=== PATIENT | male | born 1980 | race Caucasian/White ===

== ENCOUNTER 2018-11-28 07:40 | Emergency (ER) | payer OTHER, SELFPAY ==
[2018-11-28 07:41] VITALS: BP 128/85; PULSE 77; RESP 16; TEMP 36.5; O2SAT 99; BMI 19.7
[2018-11-28] MEDS: 0.9% Normal Saline 1,000 ML 1000 ML IV (08:20)
[2018-11-28] MEDS: Ondansetron 4 MG/2 ML Vial IV (08:21)
[2018-11-28 08:26] LABS: Absolute Neutrophil Count 3.8 X10^3/uL (2.0-7.7); Basophil# 0.03 X10^3/uL; Basophil% 0.6 % (0-1); Eosinophil# 0.03 X10^3/uL; Eosinophils% 0.6 % (0-5); Hematocrit 44.5 % (40-54); Hemoglobin 15.1 g/dl (13.0-16.5); Lymphocyte % 14.2 % (19-41); Mean Corp Hgb Conc 33.9 g/gl (32-36); Mean Corpuscular Hgb 30.1 pg (27.0-32.0); Mean Corpuscular Volume 88.8 fL (80-94); Monocyte# 0.43 X10^3/uL; Monocyte% 8.7 % (0-10); Neutrophil # 3.75 X10^3/uL (2.7-7.7); Neutrophil % 75.9 % (47-70); POSITIVE COUNT NO; POSITIVE DIFFERENTIAL NO; POSITIVE MORPHOLOGY NO; Platelet Count 210 K/mm3 (150-450); RBC Distribution Width CV 12.6 % (11.6-14.6); Red Blood Count 5.01 M/mm3 (4.6-6.2); White Blood Count 4.9 K/mm3 (4.4-11.0)
--- NOTE | 2018-11-28 08:28 | ED.DCSUM_ITS ---
- ER Visit Summary Date of Service: 11/28/18 Chief Complaint: [Vomiting and diarrhea] History of Present Illness: The patient is a 38 M presents to the emergency department with complaint of vomiting that started initially a week ago. Patient states that a week ago he was vomiting while at work and sent home. He subsequently went several days without any further vomiting always had loose stools. Yesterday patient vomited one time in the morning. He has been having up to 3-4 loose stools per day. Patient was at work vomited again today and noted some red chunks and became concerned. Patient has no medical history. He denies recent travel. Denies any sick contacts. [] Physical Examination: [HEENT-PERRLA, EOMI. Cranial nerves II through XII grossly intact. TMs clear. Mucous membranes moist. No adenopathy. Cardiovascular-regular rate and rhythm without murmur or ectopy Lungs-clear to auscultation, chest wall stable without crepitus or subcu emphysema Abdomen-hyperactive bowel sounds. Patient has some mild diffuse discomfort on palpation. There is no rebound, rigidity, or perineal signs. Extremities-intact ?4, normal range of motion, normal pulses, atraumatic] Test Results: [CBC with differential was normal, chemistries were normal, LFTs were normal, lipase normal. Urinalysis was normal.] Emergency Department Course and Treatment: [Patient was given normal saline initially. Patient was given Zofran 4 mill grams IV. Treatment Plan: [Patient given a prescription for Zofran and Prevacid. Patient will be given referral to primary care physician therapeutic recreation specialist for no doc. Patient advised to return if persistent vomiting, dehydration, persistent bloody emesis with clots, or condition should worsen anyway. I suspect patient likely had a small Katelyn-Hill tear.] Disposition: [Discharged home in stable condition] Impression: [Viral gastroenteritis Katelyn-Hill tear] This note was generated with [employer] dictation software. It may contain incorrect words, spelling, and punctuation that were not noted in review of the chart prior to signing ED Disposition - Plan for ED Patient: Referrals: Care Physician,No Primary [Primary Care Provider] -
[2018-11-28 08:36] LABS: Bacteria 0 SEEN /hpf (None Seen); Mucous, Urine 0 SEEN /hpf (<or=2+); Red Blood Cells-Urine 0 SEEN /hpf (0-5); White Blood Cells 0 SEEN /hpf (0-5)
[2018-11-28 08:38] LABS: Color, Urine Straw (Yellow); Glucose, Dipstick Normal (Normal); Ketone-Dipstick Negative (Negative); Leukocyte Esterase-Dipstick Negative /ul (Negative); Nitrite-Dipstick Negative (Negative); Occult Blood-Urine Negative /ul (Negative); Protein-Dipstick Negative (Negative); Urine Bilirubin Dipstick Negative (Negative); Urine Clarity Sl. Cloudy (Clear); Urine Urobilinogen Normal (Normal); Urine pH 6.5 (5.0 - 8.0)
[2018-11-28 08:40] LABS: Albumin, Serum 4.4 g/dL (3.2-5.0); BUN 11 mg/dL (7-18); BUN/Creat Ratio 11.6 RATIO (10-20); Creatinine, Serum 0.95 mg/dL (0.70-1.30); EST Glomerular Filtration Rate 94 mL/min (>60); Est Glom Filt Rate - Afr Amer 114 mL/min (>60); Estimated Creatinine Clearance 101.11 ml/min; Glucose 89 mg/dL (74-106); Protein, Total 7.7 g/dL (6.4-8.2)
[2018-11-28 08:41] LABS: ALB/GLOB Ratio 1.3 RATIO (0.9-2.4); AST(SGOT) 17 U/L (15-37); Alanine Aminotransfer ALT/SGPT 23 U/L (16-61); Alkaline Phosphatase 73 U/L (45-117); Anion Gap 3 (5-15); Calcium,Total 8.7 mg/dL (8.5-10.1); Chloride 104 mmol/L (98-107); Globulin 3.3 g/dL (2.2-4.2); Lipase 89 U/L (73-393); Potassium 3.7 mmol/L (3.5-5.1); Sodium Level 138 mmol/L (136-145)
[2018-11-28 08:45] LABS: Squamous Epithelial Cells - UA 0-5 SEEN /hpf (0-5)
--- NOTE | 2018-11-28 08:51 | ED.DEP ---
ED Disposition - Plan for ED Patient: Instructions: ED Gastroenteritis Viral, Katelyn-Hill Tear Prescriptions: Ondansetron [Zofran Odt] 4 mg PO Q8H PRN PRN #10 tab PRN Reason: Nausea Lansoprazole [Prevacid] 30 mg PO DAILY #30 cap Referrals: Care Physician,No Primary [Primary Care Provider] - Dwight Mark MD [STAFF PHYSICIAN] - 3-5 Days
[2018-11-28 09:07] VITALS: BP 130/80; PULSE 78; RESP 18; O2SAT 99
== END 2018-11-28 09:08 | disposition home or self-care (01) ==
PROVIDERS: Emergency Provider Emergency Medicine
DX: A08.4 Viral intestinal infection, unspecified (principal); K22.6 Gastro-esophageal laceration-hemorrhage syndrome; F17.290 Nicotine dependence, other tobacco product, uncomplicated
CPT/HCPCS: 80053; 81001; 83690; 85025; 96361; 96374; 99283; J7030; A4216; J2405

== ENCOUNTER 2020-01-27 12:54 | Emergency (ER) | payer SELFPAY ==
[2020-01-27 12:55] VITALS: BP 132/84; PULSE 92; RESP 18; TEMP 36.6; O2SAT 100; BMI 19.8
--- NOTE | 2020-01-27 13:20 | ED.VIS.HA ---
History of Present Illness Chief Complaint: Headache Informant: Patient Onset: Today - around 8 hrs ago Context: Sudden - awoke from sleep 3am w/ headache Timing: Continuous Quality: Similar Prior Headaches Location: bifrontal retroorbital Current Severity: Moderate Maximum Severity: Moderate Worsened by: light, sound Relieved by: nothing; tried excedrin Associated Symptoms: Nausea, Blurred Vision, Photophobia. Negative for: Fever, Vomiting, Sore Throat, Sinus Pressure, Numbness, Tingling, Visual Loss Injury: - - No injury or fall or fever Narrative: Patient with history of migraines and states this feels similar to prior ones except that is not improving or going away. Seasonal allergies are known trigger, which he has had lately. He states when he wakes up with a headache like this which he has done in the past, he usually takes some Excedrin and goes back to sleep and wakes up feeling better, but that was not the case when he did it today. He usually takes [id number] medications and has never had prescription migraine medications before that he can recall. No recent illnesses or injury. No focal neurologic symptoms. Diffuse blurry vision when his headache is bad. - Past Medical History (1) Migraines Status: Chronic Past Medical History - Allergies and Home Meds Allergies/Adverse Reactions: Allergies No Known Allergies Allergy (Verified 01/27/20 12:58) Primary Care Physician: Care Physician,No Primary [Primary Care Provider] - Smoking Status: Current every day smoker Drugs: - - ex-narcotic abuser Review of Systems General: Denies: Chills, Fever, Sweats Eyes: Reports: Blurred Vision - bilaterally. Denies: Diplopia ENT: Denies: Rhinorrhea, Sore throat Cardiovascular: Denies: Chest pain, Palpitations Respiratory: Denies: Dyspnea, Cough, Dyspnea on exertion Gastrointestinal: Reports: Nausea. Denies: Abdominal pain, Vomiting, Diarrhea, Melena, Hematochezia Genitourinary: Denies: Dysuria, Hematuria, Frequency Musculoskeletal: Denies: Back pain, Extremity Pain Skin: Denies: Rash, Wounds Neurological: Reports: Headache. Denies: Weakness, Numbness Physical Exam Vital Signs/Narrative: Vital Signs Temp Pulse Resp BP Pulse Ox 01/27/20 12:55 98 F 92 18 132/84 H 100 Inital Vital Signs reviewed: Yes General: Well nourished, Well developed, - - NAD Head: NC, AT Eyes: Perrl, EOMI, - - photophobia ENT: Moist mucous membranes, No rhinorrhea Neck: Supple, No Meningismus Respiratory: No distress Extremities: Nontender, No edema Skin: Normal color, No rash, No Trauma Neuro: Alert, Oriented x3, Cranial nerves II-XII grossly intact, Normal Strength, Normal Sensation, Normal Gait Psychological: Normal affect, Normal Mood Diagnostic/Tx/Re-eval - Medical Decision Making Pt initially treated w/ SQ Imitrex. Will be reevaluated for improvement. Plan is for discharge. Will advance treatment here before that if needed. ED Disposition - Plan for ED Patient: Disposition: Home or Assisted Living Diagnosis: Migraine headache Instructions: ED, Migraine (Classical) Referrals: Doctor,Your [STAFF PHYSICIAN] -
[2020-01-27] MEDS: SUMAtriptan 6 MG/0.5 ML Vial SC (14:13)
== END 2020-01-27 14:56 | disposition home or self-care (01) ==
LOC: ED 14:54
PROVIDERS: Emergency Provider Emergency Medicine
DX: G43.909 Migraine, unspecified, not intractable, without status migrainosus (principal); F17.200 Nicotine dependence, unspecified, uncomplicated
CPT/HCPCS: 96372; 99282; J3030

== ENCOUNTER 2020-05-18 10:06 | Emergency (ER) | payer SELFPAY ==
[2020-05-18 10:07] VITALS: BP 136/87; PULSE 80; RESP 16; TEMP 36.4; O2SAT 100; BMI 21.1
--- NOTE | 2020-05-18 10:24 | ED.DCSUM_ITS ---
History of Present Illness Chief Complaint: Headache Informant: Patient Onset: Today Context: Gradual Current Severity: Moderate Associated Symptoms: Nausea, Photophobia. Negative for: Fever, Numbness, Visual Changes, Blurred Vision Narrative: Patient is a 39-year-old male with history of migraines presenting with a headache. Patient states yesterday he was helping his girlfriend move into a new house and they released him sleep arms on the new house. He was not wearing a respirator when he did this. He states when he woke up this morning he had a nagging headache that is progressed throughout the day. He states it is throbbing in nature and feels like a pressure behind his eyes. He has associated photophobia. He states he went to work where it is very loud and that was just aggravating his symptoms. He had to leave work because of his symptoms. He states he gets about 3 headaches a month but has not had a bad would like this in a couple months. At that time he was seen in our ER and was given a shot of Imitrex which helped his symptoms. Patient is not follow with a primary care doctor. He is not on any regular maintenance therapy for his headaches. He did try taking generic Migraine medication with no relief of his symptoms. He has no other complaints at this time. Past Medical History - Allergies and Home Meds Allergies/Adverse Reactions: Allergies No Known Allergies Allergy (Verified 05/18/20 10:08) Primary Care Physician: Care Physician,No Primary [Primary Care Provider] - Past Medical History: - - Headaches Surgical History: noncontributory Smoking Status: Never smoker Alcohol: None Drugs: None Review of Systems General: Reports: Malaise. Denies: Chills, Fever, Sweats Eyes: Reports: - - Photophobia. Denies: Visual changes - bilaterally, Diplopia ENT: Denies: Rhinorrhea, Sore throat Cardiovascular: Denies: Chest pain, Palpitations Respiratory: Denies: Dyspnea, Cough, Dyspnea on exertion Gastrointestinal: Reports: Nausea. Denies: Abdominal pain, Vomiting, Diarrhea, Melena, Hematochezia Genitourinary: Denies: Dysuria, Hematuria, Frequency Musculoskeletal: Reports: Neck pain - Left-sided. Denies: Back pain, Extremity Pain Skin: Denies: Rash, Wounds Neurological: Reports: Headache. Denies: Weakness, Numbness Physical Exam Vital Signs/Narrative: Vital Signs Temp Pulse Resp BP Pulse Ox 05/18/20 10:07 97.5 F L 80 16 136/87 H 100 Inital Vital Signs reviewed: Yes General: Well nourished, Well developed Head: NC, AT Eyes: Perrl, EOMI ENT: Moist mucous membranes, No rhinorrhea, TM's clear Neck: Supple, No Lymphadenopathy, No JVD, Nontender, No Meningismus, Paraspinal Tenderness - Left lower paraspinal Cardiovascular: Regular rate, Regular rhythm, No murmurs Respiratory: No distress, CTA bilaterally, Chest nontender Abdomen: Soft, Nontender, Nondistended, Normal bowel sounds Back: Nontender, Normal Inspection, - - Mild left trapezius tenderness palpation. Negative for: CVA tenderness, Spinal tenderness Extremities: Nontender, No edema, - Skin: Normal color, No rash Neuro: Alert, Oriented x3, Cranial nerves II-XII grossly intact, Normal Stren gth, Normal Sensation, Normal DTR, Normal Gait Psychological: Normal affect Diagnostic/Tx/Re-eval - Medical Decision Making Patient evaluated for gradual onset headache. He appears nontoxic in no acute distress. He has normal vital signs. He has no meningeal signs. He has a normal neurologic exam. Patient states previously sumatriptan has helped his headaches. He is given that as well as oral Zofran. On reevaluation he states he is feeling better. He is ready to go home. He is requesting a work note which is given to him for today. He is given return precautions. He verbalizes agreement understand this plan. Discharged home in stable and improved condition. ED Disposition - Plan for ED Patient: Disposition: Home or Assisted Living Diagnosis: Migraines Instructions: ED Headache Unspecified Referrals: Lisandro Griffin MD [STAFF PHYSICIAN] -
[2020-05-18] MEDS: Ondansetron ODT 4 MG Tablet PO (10:34)
[2020-05-18] MEDS: SUMAtriptan 6 MG/0.5 ML Vial SC (10:35)
== END 2020-05-18 11:18 | disposition home or self-care (01) ==
PROVIDERS: Emergency Provider Emergency Medicine
DX: G43.909 Migraine, unspecified, not intractable, without status migrainosus (principal); M54.2 Cervicalgia
CPT/HCPCS: 96372; 99282; J3030

== ENCOUNTER 2020-06-18 07:47 | Emergency (ER) | payer SELFPAY ==
[2020-06-18 07:48] VITALS: BP 141/92; PULSE 94; RESP 16; TEMP 36.4; O2SAT 100; BMI 21.1
--- NOTE | 2020-06-18 07:54 | RAD_ITS ---
STUDY: X-RAY CHEST REASON FOR EXAM: Male, 39 years old. SINUS CONGESTION/PRESSURE -- COUGH TECHNIQUE: Single AP portable view of the chest. COMPARISON: None. FINDINGS: Hyperinflation. The lungs are clear. There is no demonstrated pleural abnormality. Normal size heart. Normal mediastinum and brianne. Normal visualized pulmonary arteries. Normal visualized aortic arch and descending thoracic aorta. Normal visualized thoracic spine. Normal visualized ribs, clavicles, and shoulders. There is no demonstrated abnormality of the visualized soft tissue structures of the upper abdomen. RAD/Chest 1 View (Portable) IMPRESSION: Hyperinflation. Electronically Signed: René Dsouza, at 8:41 EDT , Service support ,
--- NOTE | 2020-06-18 07:55 | ED.VIS.GEN ---
History of Present Illness Chief Complaint: Cold Sx Informant: Patient Onset: Weeks - Onset 1 week ago Context: Sudden Onset Timing: Continuous Quality: Viral upper respiratory Location: Upper respiratory Current Severity: Mild Maximum Severity: Moderate Worsened by: Nothing Relieved by: Nothing Associated Symptoms: Crusting and drainage from eyes Narrative: Patient is a 39-year-old male who presents with upper respiratory symptoms that started 1 week ago. He is a non-smoker. He denies fever, chills night sweats. He does report nasal congestion postnasal drainage stuffed up ears and more frequent headaches. He does admit question of his eyelashes and drainage from his eyes. He denies any exposure to Covid. He has no other symptoms. He presents because he had to call off work because he feels ill. Prior similar symptoms: No Recent Illness/Hospitalization: No - Past Medical History (1) Migraines Status: Chronic Past Medical History - Allergies and Home Meds Allergies/Adverse Reactions: Allergies No Known Allergies Allergy (Verified 06/18/20 07:48) Primary Care Physician: Care Physician,No Primary [Primary Care Provider] - Surgical History: noncontributory Lives: Spouse/ Significant Other Smoking Status: Never smoker Drugs: None Review of Systems General: Denies: Chills, Fever, Sweats Eyes: Reports: - - Crusting of eyelashes and drainage noted in the morning. Denies: Visual changes - bilaterally, Blurred Vision - bilaterally ENT: Reports: Bilateral ear pain, Sore throat, - - Is of congestion and postnasal drainage. Denies: Rhinorrhea Respiratory: Reports: Cough Gastrointestinal: Reports: Nausea. Denies: Abdominal pain, Vomiting, Diarrhea, Melena, Hematochezia Genitourinary: Denies: Dysuria, Hematuria, Frequency Musculoskeletal: Denies: Back pain, Extremity Pain Skin: Denies: Rash, Wounds Neurological: Reports: Headache. Denies: Weakness, Parasthesia Hematologic: Denies: Easy bruising, Easy bleeding Physical Exam Vital Signs/Narrative: Vital Signs Temp Pulse Resp BP Pulse Ox 06/18/20 07:48 97.6 F L 94 16 141/92 H 100 Inital Vital Signs reviewed: Yes General: Well nourished, Well developed, No Acute Distress Head: Normocephalic, Atraumatic Eyes: Perrl, EOMI. Negative for: Pale conjunctiva, Scleral icterus Neck: Supple, Nontender, No lymphadenopathy, No JVD, - - Trachea is midline. There is no inspiratory expiratory stridor. Cardiovascular: Regular rate, Regular rhythm, No murmurs Respiratory: No distress, CTA bilaterally, Chest nontender Extremities: No edema Skin: Normal color, No rash, No Trauma. Negative for: Cyanosis, Diaphoresis, Jaundice Neurological: Alert, Oriented x3, Cranial nerves II-XII grossly intact, Normal Strength, Normal Sensation, Normal Gait Psychological: Normal affect, Normal Mood Diagnostic/Tx/Re-eval Chest X-Ray - ED: 1 View, Read by ED Physician, Normal, Heart, Mediastinum, Bony Structures, No Acute Disease, - - Has hyper aeration otherwise the chest x-ray is normal. 06/18/20 07:54 Chest 1 View (Portable) [RAD] Stat - Medical Decision Making This patient has respiratory symptoms and there is an upsurge in Covid in the area patient was informed that a Covid test was ordered. He does not wish to have Covid test. He feels this is a viral operatory infection. Since he had symptoms for 1 week and feels ill enough to call off work a chest x-ray was obtained. Because there is an upsurge a single view was obtained. Patient was informed treatment is symptomatic. This is a viral infection. He was discharged home. ED Disposition - Plan for ED Patient: Disposition: Home or Assisted Living Diagnosis: Upper respiratory infection with cough and congestion Instructions: ED Upper Resp Infec No Abx Tx Referrals: Marsha Rudolph DO [STAFF PHYSICIAN] - Care Physician,No Primary [Primary Care Provider] - 1 Week if not improving Additional Instructions: You may be ill for another 5 to 7 days. Treatment is symptomatic since this is a viral infection. Since you do not have a primary care physician you were assigned to Dr. Marsha Rudolph
== END 2020-06-18 08:37 | disposition home or self-care (01) ==
LOC: ED 08:26
PROVIDERS: Emergency Provider Emergency Medicine
DX: J06.9 Acute upper respiratory infection, unspecified (principal); H92.03 Otalgia, bilateral
CPT/HCPCS: 71045; 99281

== ENCOUNTER 2021-02-07 11:29 | Emergency (ER) | payer OTHER, SELFPAY ==
[2021-02-07 11:30] VITALS: BP 121/74; PULSE 75; RESP 16; TEMP 36.2; O2SAT 99; BMI 21.1
--- NOTE | 2021-02-07 11:54 | EDS_ITS ---
HPI History of Present Illness Chief Complaint: Headache Informant: patient Narrative Narrative: 40-year-old male with a history of migraines presents with headache. He tells me that he gets a migraine at least once a month but can usually treated with Excedrin. He has not had regular health insurance has been unable to establish primary care but that situation is changing. He does not have any abortive prescription medications. He tells me that last night before bed he began to feel like a headache might be coming on and by 2 in the morning he states his headache was severe described as throbbing and frontal and occipital in nature. He notes light sensitivity. He had some nausea but is better. He is requesting a shot of Imitrex which is helped him in the past. [facility] Medical History Migraines Home Medications sumatriptan succinate [Imitrex] 50 mg PO Q2H PRN #10 tab 02/07/21 [Rx Last Taken Unknown] Allergy/AdvReac Type Severity Reaction Status Date / Time No Known Allergies Allergy Verified 02/07/21 11:39 Social History (Updated 02/07/21 @ 11:[address] Selvin Ramirez DO) Smoking Status: Never smoker substance use type: does not use ROS ROS ED Constitutional Constitutional ED: Denies chills or weight loss Eyes Eyes: Denies change in vision or diplopia ENT ENT ED: Denies ear pain, rhinorrhea or sore throat Cardiovascular Cardiovascular: Denies chest pain, orthopnea, palpitations or racing heartbeat Respiratory/Chest Respiratory/Chest: Denies cough, dyspnea or orthopnea Gastrointestinal Gastrointestinal: Reports nausea; Denies abdominal pain, diarrhea or vomiting Genitourinary Genitourinary ED: Denies dysuria, hematuria or urinary frequency Musculoskeletal Musculoskeletal: Denies arthralgias or myalgias Integumentary Denies abscess or rash Neurologic Neurologic: Reports headache(s); Denies weakness Psychiatric Psychiatric: Denies anxiety, depression, suicidal ideation or suicidal thoughts Endocrine Endocrinology: Denies polydipsia, polyphagia or polyuria Allergic/Immunologic Allergic/Immunologic ED: Denies mouth swelling, tongue swelling or urticaria EXAM Physical Exam Narrative Exam Narrative: 40-year-old male sitting in a darkened room. Const Vital Signs: 02/07/21 11:30 Temperature 97.1 F L Temperature Source Temporal Pulse Rate 75 Respiratory Rate 16 Blood Pressure 121/74 H Blood Pressure Mean 89 Pulse Ox 99 Oxygen Delivery Method Room Air Positive well nourished and well developed General Appearance ED: well developed HEENT Reports normocephalic, head/scalp atraumatic and moist mucous membranes HEENT Narrative: Mild photophobia Eyes PERRL and EOMs intact bilaterally Neck no lymphadenopathy, supple and no JVD Resp normal respiratory effort and clear to auscultation bilaterally Cardio regular rate, regular rhythm and no murmurs GI normal to inspection, nondistended, normoactive bowel sounds and non-tender Palpation: soft Back/Spine no CVA tenderness and normal ROM Extremity normal to inspection General Extremety ED: Negative for edema General Extremity: Negative for edema Neuro oriented x3, CN's II-XII intact bilaterally and no sensory deficits noted Sensorium / Orientation: alert; Negative for orientation impaired Motor Exam: strength 5/5 throughout Psych mental status grossly normal Mood & Affect: Negative for depressed or tearful Skin no rashes or lesions noted and no wounds MDM MDM MDM Narrative Medical decision making narrative: Patient was given a shot of Imitrex. Discharge Plan Triage Chief Complaint: Headache ED Provider: Selvin Ramirez Dx/Rx/DC Orders Clinical Impression: Migraine Prescriptions: New sumatriptan succinate [Imitrex] 50 mg tablet 50 mg PO Q2H PRN (Reason: migraine headache) Qty: 10 RF: 0 Stand Alone Forms: ED Work / School Excuse Primary Care Provider: Care Physician,No Primary Referrals: Care Physician,No Primary [Primary Care Provider] - Talib Vazquez NP, FITNESS AND WELLNESS DIRECTOR-C [Nurse Practitioner] - As soon as possible (for primary care) Disposition Disposition: Home, self care
[2021-02-07] MEDS: SUMAtriptan 6 MG/0.5 ML Vial SC (12:31)
[2021-02-07 12:57] VITALS: BP 121/74; PULSE 75; RESP 16; O2SAT 99
--- NOTE | 2021-02-07 12:57 | ED.RN ---
PT WAS OBSERVED ON SHOT TIME FOR GREATER THAN 15 MINUTES NO REACTION NOTED BY THIS RN.
== END 2021-02-07 12:58 | disposition home or self-care (01) ==
PROVIDERS: Emergency Provider Emergency Medicine
DX: G43.909 Migraine, unspecified, not intractable, without status migrainosus (principal)
CPT/HCPCS: 96372; 99282; A4216; J3030

== ENCOUNTER 2021-08-01 08:19 | Emergency (ER) | payer OTHER, SELFPAY ==
[2021-08-01 08:20] VITALS: BP 132/90; PULSE 85; RESP 16; TEMP 36.9; O2SAT 99; BMI 20.4
--- NOTE | 2021-08-01 10:51 | EX.ED.DYSGE1 ---
HPI History of Present Illness Chief Complaint: Sore Throat Informant: patient Onset/Context/Timing Onset: Today Current Severity: Mild Maximum Severity: Moderate Narrative Narrative: Patient woke this morning with throat pain that felt like razor blades when I swallowed. He also noted swelling to the right side of his neck. No fever or chills. He denies recent illness and felt fine when he went to bed last night. He did state that he had some yellow to green-colored mucus when he blew his nose today. [facility] Medical History Migraines Home Medications sumatriptan succinate [Imitrex] 50 mg PO Q2H PRN #10 tab 02/07/21 [Rx Last Taken Unknown] naproxen [Naprosyn] 500 mg PO BID PRN #20 tab 08/01/21 [Rx Last Taken Unknown] prednisone 40 mg PO DAILY #6 tab 08/01/21 [Rx Last Taken Unknown] Allergy/AdvReac Type Severity Reaction Status Date / Time No Known Allergies Allergy Verified 08/01/21 10:55 Social History Smoking Status: Never smoker substance use type: does not use ROS ROS ED Constitutional Constitutional ED: Denies chills or fever(s) Eyes Eyes: Denies change in vision ENT ENT ED: Reports sore throat and other Details: Sinus pressure, congestion Cardiovascular Cardiovascular: Denies chest pain Respiratory/Chest Respiratory/Chest: Denies cough or dyspnea Gastrointestinal Gastrointestinal: Denies abdominal pain, nausea or vomiting Musculoskeletal Musculoskeletal: Denies back pain Integumentary Denies rash Neurologic Neurologic: Denies headache(s) or weakness Allergic/Immunologic Allergic/Immunologic ED: Denies urticaria EXAM Physical Exam Const Vital Signs: 08/01/21 08:20 Temperature 98.5 F Temperature Source Temporal Pulse Rate 85 Respiratory Rate 16 Blood Pressure 132/90 H Blood Pressure Mean 104 Pulse Ox 99 Oxygen Delivery Method Room Air Positive well nourished and well developed General Appearance ED: well developed HEENT Reports normocephalic, head/scalp atraumatic and TM's clear HEENT Narrative: 1+ bilateral tonsils. No exudate. Uvula midline. Mild posterior pharyngeal drainage. Patient tolerating secretions well and speaks with a strong voice. Tympanic Membrane ED: Yes TM's clear Eyes PERRL and EOMs intact bilaterally Neck supple Chest Wall inspection of chest normal and palpation of chest normal Resp normal respiratory effort and clear to auscultation bilaterally Cardio regular rate and regular rhythm GI non-tender Palpation: soft Back/Spine no CVA tenderness Extremity normal to inspection Neuro oriented x3 and no sensory deficits noted Sensorium / Orientation: alert Motor Exam: strength 5/5 throughout Psych mental status grossly normal Skin no rashes or lesions noted MDM MDM MDM Narrative Medical decision making narrative: Rapid Covid and strep test obtained per nursing protocol. Treatment and Re-Evaluation Comments:: Covid and strep test are negative. Patient be given anti-inflammatories and a short burst of steroids to help with inflammation and pain. I discussed with him that I believe his symptoms are all viral in nature and simply need to run their course. Discharge Plan Triage Chief Complaint: Sore Throat ED Provider: Shweta Hood Dx/Rx/DC Orders Clinical Impression: Viral pharyngitis Instructions: ED Pharyngitis, Viral Prescriptions: New naproxen [Naprosyn] 500 mg tablet 500 mg PO BID PRN (Reason: pain) Qty: 20 RF: 0 prednisone 20 mg tablet 40 mg PO DAILY Qty: 6 RF: 0 No Action sumatriptan succinate [Imitrex] 50 mg tablet 50 mg PO Q2H PRN (Reason: migraine headache) Qty: 10 RF: 0 Stand Alone Forms: ED Work / School Excuse Primary Care Provider: Care Physician,No Primary Referrals: Marshall Anne MD [STAFF PHYSICIAN] - As Needed Care Physician,No Primary [Primary Care Provider] - Disposition Disposition: Home, Self Care
== END 2021-08-01 11:08 | disposition home or self-care (01) ==
LOC: ED 11:06
PROVIDERS: Emergency Provider Emergency Medicine
DX: J02.8 Acute pharyngitis due to other specified organisms (principal); G43.909 Migraine, unspecified, not intractable, without status migrainosus; Z20.822 Contact with and (suspected) exposure to COVID-19
CPT/HCPCS: 87077; 87426; 87880; 99282

== ENCOUNTER 2022-01-24 10:52 | Emergency (ER) | payer SELFPAY ==
[2022-01-24 10:53] VITALS: BP 119/87; PULSE 78; RESP 16; TEMP 36.6; O2SAT 99; BMI 21.1
--- NOTE | 2022-01-24 11:19 | EDS_ITS ---
HPI History of Present Illness Chief Complaint: Headache Informant: patient Onset/Context/Timing Onset: Today Current Severity: Moderate Maximum Severity: Severe Narrative Narrative: Patient present secondary to migraine headache. He gets migraines approximately once a month. He woke at 330 this morning to go to work with a migraine. He took 2 Excedrin and went back to bed. When he woke short before 10 he still had significant headache. He does have light sensitivity. No vomiting. No recent head injuries. [facility] Medical History Migraines Home Medications sumatriptan succinate [Imitrex] 50 mg PO Q2H PRN #10 tab 02/07/21 [Rx Last Taken Unknown] naproxen [Naprosyn] 500 mg PO BID PRN #20 tab 08/01/21 [Rx Last Taken Unknown] prednisone 40 mg PO DAILY #6 tab 08/01/21 [Rx Last Taken Unknown] Allergy/AdvReac Type Severity Reaction Status Date / Time No Known Allergies Allergy Verified 01/24/22 10:55 Social History Smoking Status: Never smoker substance use type: does not use ROS ROS ED Constitutional Constitutional ED: Denies chills or fever(s) Eyes Eyes: Denies change in vision ENT ENT ED: Denies sore throat Cardiovascular Cardiovascular: Denies chest pain Respiratory/Chest Respiratory/Chest: Denies cough or dyspnea Gastrointestinal Gastrointestinal: Denies abdominal pain, diarrhea, nausea or vomiting Genitourinary Genitourinary ED: Denies dysuria Musculoskeletal Musculoskeletal: Denies back pain Integumentary Denies rash Neurologic Neurologic: Reports headache(s); Denies paresthesias or weakness Allergic/Immunologic Allergic/Immunologic ED: Denies urticaria EXAM Physical Exam Const Vital Signs: 01/24/22 10:53 Temperature 97.9 F Temperature Source Temporal Pulse Rate 78 Respiratory Rate 16 Blood Pressure 119/87 H Blood Pressure Mean 97 Pulse Ox 99 Oxygen Delivery Method Room Air Positive well nourished and well developed General Appearance ED: well developed HEENT Reports moist mucous membranes Eyes EOMs intact bilaterally Neck supple Resp normal respiratory effort and clear to auscultation bilaterally Cardio regular rate and regular rhythm GI non-tender Auscultation: normoactive bowel sounds Palpation: soft Extremity normal to inspection Neuro oriented x3 and no sensory deficits noted Sensorium / Orientation: awake and alert Motor Exam: strength 5/5 throughout Psych mental status grossly normal Skin Lesions: no lesions Rashes: no rashes MDM MDM MDM Narrative Medical decision making narrative: Patient given subcu Imitrex which usually helps his migraines. Treatment and Re-Evaluation Narrative: Repeat evaluation patient resting comfortably. He does feel somewhat improved. He is comfortable managing his symptoms at home. Return instructions are provided. Discharge Plan Triage Chief Complaint: Headache ED Provider: Shweta Hood Dx/Rx/DC Orders Clinical Impression: Migraine Instructions: ED, Migraine (Classical) Prescriptions: No Action sumatriptan succinate [Imitrex] 50 mg tablet 50 mg PO Q2H PRN (Reason: migraine headache) Qty: 10 RF: 0 naproxen [Naprosyn] 500 mg tablet 500 mg PO BID PRN (Reason: pain) Qty: 20 RF: 0 prednisone 20 mg tablet 40 mg PO DAILY Qty: 6 RF: 0 Primary Care Provider: Care Physician,No Primary Referrals: Toni Antunez MD [STAFF PHYSICIAN] - As Needed Care Physician,No Primary [Primary Care Provider] - Disposition Disposition: Home, Self Care
[2022-01-24] MEDS: SUMAtriptan 6 MG/0.5 ML Vial SC (11:26)
--- NOTE | 2022-01-24 12:19 | CM.ED ---
SW Note Referral Source: Case Find Referral Source: No PCP and no insurance SW met with patient. Patient has no insurance and PCP. SW provided patient with financial packet and list of [facility] Healthcare Providers. No questions or concerns voiced. RN updated Venecia YAO
[2022-01-24 12:22] VITALS: PULSE 75; RESP 16; O2SAT 98
== END 2022-01-24 12:23 | disposition home or self-care (01) ==
LOC: ED 11:40
PROVIDERS: Emergency Provider Emergency Medicine; Visit Provider Emergency Medicine
DX: G43.909 Migraine, unspecified, not intractable, without status migrainosus (principal); Z79.1 Long term (current) use of non-steroidal anti-inflammatories (NSAID); Z79.52 Long term (current) use of systemic steroids
CPT/HCPCS: 96372; 99282; J3030

== ENCOUNTER 2022-02-08 03:39 | Emergency (ER) | payer SELFPAY ==
[2022-02-08 03:40] VITALS: BP 137/91; PULSE 71; RESP 18; TEMP 36.3; O2SAT 97; BMI 19.2
--- NOTE | 2022-02-08 03:56 | ED.VIS.GI ---
HPI HPI - GI History of Present Illness Chief Complaint: Abd Pain Informant: patient Narrative Narrative: Patient presents with epigastric pain that has been going on but waxing and waning for about 2 to 3 days. He had some nausea and vomiting the first day only. No diarrhea. No blood in the vomitus or stool. He was able to eat more yesterday. He did have some mild nausea but no vomiting. Some foods bother him some do not. He knows that dairy bothers him and he has been cutting this out of the diet. He has been eating a lot more pizza recently. This does tend to bother her stomach. He also admits to having an acid or sour flavor in his mouth. The pain is epigastric but does not radiate to his back. It has not moved. Its not in the lower abdomen. No chest pain or trouble breathing. No prior abdominal surgery. He has a history of migraines but is not having a headache and has never been diagnosed with intestinal migraines. [facility] Medical History Migraines Home Medications dicyclomine 20 mg tablet 20 mg PO TID PRN cramping #14 tabs 02/08/22 [Rx Last Taken Unknown] esomeprazole magnesium 20 mg capsule,delayed release (Nexium) 20 mg PO DAILY #30 caps 02/08/22 [Rx Last Taken Unknown] ondansetron 4 mg disintegrating tablet 4 mg PO Q8H PRN nausea and vomiting #10 tabs 02/08/22 [Rx Last Taken Unknown] Allergy/AdvReac Type Severity Reaction Status Date / Time No Known Allergies Allergy Verified 01/24/22 10:55 Social History Smoking Status: Never smoker substance use type: does not use ROS ROS ED Constitutional Constitutional ED: Denies chills or subjective ENT ENT ED: Denies rhinorrhea or sore throat Cardiovascular Cardiovascular: Denies chest pain or palpitations Respiratory/Chest Respiratory/Chest: Denies cough or dyspnea Gastrointestinal Gastrointestinal: Reports abdominal pain, nausea and vomiting; Denies constipation, diarrhea or melena Genitourinary Genitourinary ED: Denies dysuria Musculoskeletal Musculoskeletal: Denies back pain Integumentary Denies abscess Neurologic Neurologic: Denies headache(s) Endocrine Endocrinology: Denies polydipsia or polyphagia Hematologic/Lymphatic Hematologic/Lymphatic: Denies easy bleeding or easy bruising Allergic/Immunologic Allergic/Immunologic ED: Denies mouth swelling EXAM Physical Exam Const Vital Signs: 02/08/22 03:40 Temperature 97.3 F L Temperature Source Temporal Pulse Rate 71 Respiratory Rate 18 Blood Pressure 137/91 H Blood Pressure Mean 106 Pulse Ox 97 Oxygen Delivery Method Room Air Positive well nourished and well developed General Appearance ED: well developed and NAD HEENT Reports moist mucous membranes; Denies dry mucous membranes Mouth ED: No dry mucous membranes Mouth: No dry mucous membranes Eyes EOMs intact bilaterally General Eye ED: Negative for scleral icterus Resp normal respiratory effort and clear to auscultation bilaterally Cardio regular rate and regular rhythm GI non-distended GI Narrative: Bowel sounds are normal. Minimal epigastric tenderness without rebound or guarding. No mass felt. No hernia felt. No lower abdominal tenderness. No right upper quadrant tenderness. Back/Spine no CVA tenderness Extremity General Extremety ED: Negative for edema or tenderness General Extremity: Negative for edema Neuro Sensorium / Orientation: alert Psych mental status grossly normal Skin no wounds MDM MDM MDM Narrative Medical decision making narrative: Patient CBC including white count hemoglobin platelets are normal. Electrolytes are normal. Liver function test is normal. Glucose is normal. Lipase is normal. Patient is feeling better. Repeat exam shows minimal if any epigastric tenderness. Since this patient has been having symptoms for day, is still able to eat and drink, has no fever or white count, labs are overall normal, and his exam is relatively benign I do not think he needs a CAT scan. I think this is likely gastritis. I will get him on a PPI. We will add Zofran and Bentyl as needed. We discussed reasons to return and dietary changes. Lab Data Attestation: I reviewed the patient's lab results. Labs: Laboratory Results - last 24 hr 02/08/22 02/08/22 03:50 03:50 WBC 6.0 RBC 5.16 Hgb 15.4 Hct 46.5 MCV 90.1 MCH 29.8 MCHC 33.1 RDW Std Deviation 40.2 RDW Coeff of Debra 12.1 Plt Count 207 MPV 11.1 Immature Gran % (Auto) 0.200 Neut % (Auto) 63.1 Lymph % (Auto) 23.8 [place] % (Auto) 8.1 Eos % (Auto) 4.0 Baso % (Auto) 0.8 Absolute Neuts (auto) 3.8 Absolute Lymphs (auto) 1.44 Nucleated RBC % 0 Sodium 139 Potassium 3.6 Chloride 105 Carbon Dioxide 28.0 Anion Gap 6 BUN 11 Creatinine 1.03 Estim Creat Clear Calc 88.41 Est GFR (MDRD) Af Amer 102 Est GFR (MDRD) Non-Af 84 BUN/Creatinine Ratio 10.7 Glucose 99 Calcium 8.9 Total Bilirubin 0.50 AST 15 ALT 25 Alkaline Phosphatase 73 Total Protein 7.4 Albumin 3.9 Globulin 3.5 Albumin/Globulin Ratio 1.1 Lipase 75 Discharge Plan Triage Chief Complaint: Abd Pain ED Provider: Ashutosh Nuñez Dx/Rx/DC Orders Clinical Impression: Acute gastritis Instructions: ED Gastritis (Adult) Prescriptions: New ondansetron 4 mg tablet,disintegrating 4 mg PO Q8H PRN (Reason: nausea and vomiting) Qty: 10 0RF dicyclomine 20 mg tablet 20 mg PO TID PRN (Reason: cramping) Qty: 14 0RF esomeprazole magnesium [Nexium] 20 mg capsule,delayed release(DR/EC) 20 mg PO DAILY Qty: 30 0RF Primary Care Provider: Care Physician,No Primary Referrals: Eunice Chowdhury DO [STAFF PHYSICIAN] - 1 Week Care Physician,No Primary [Primary Care Provider] - Disposition Disposition: Home, Self Care
[2022-02-08] MEDS: 0.9% Normal Saline 1,000 ML 1000 ML IV (04:00)
[2022-02-08] MEDS: Dicyclomine 20 MG/2 ML Vial IM (04:00)
[2022-02-08] MEDS: Ondansetron 4 MG/2 ML Vial IV (04:00)
[2022-02-08 04:02] LABS: Absolute Lymphocyte Count 1.44 X10^3/uL (0.83-4.51); Absolute Neutrophil Count 3.8 X10^3/uL (2.0-7.7); Basophil# 0.05 X10^3/uL; Basophil% 0.8 % (0-1); Eosinophil# 0.24 X10^3/uL; Hematocrit 46.5 % (40-54); Hemoglobin 15.4 g/dL (13.0-16.5); Lymphocyte # 1.44 X10^3/ul (0.83-4.51); Lymphocyte % 23.8 % (19-41); Mean Corp Hgb Conc 33.1 g/dL (32-36); Mean Corpuscular Hgb 29.8 pg (27.0-32.0); Mean Corpuscular Volume 90.1 fL (80-94); Mean Platelet Vol. 11.1 fl (6.2-12.0); Monocyte# 0.49 X10^3/uL; Monocyte% 8.1 % (0-10); NRBC Flagged by Analyzer 0 % (0-5); Neutrophil # 3.81 X10^3/uL (2.7-7.7); Neutrophil % 63.1 % (47-70); Platelet Count 207 K/mm3 (150-450); RBC Distribution Width CV 12.1 % (11.6-14.6); RBC Distribution Width SD 40.2 fl (35.1-43.9); Red Blood Count 5.16 M/mm3 (4.6-6.2)
[2022-02-08 04:42] LABS: Albumin, Serum 3.9 g/dL (3.2-5.0); BUN 11 mg/dL (7-18); BUN/Creat Ratio 10.7 RATIO (10-20); Creatinine, Serum 1.03 mg/dL (0.70-1.30); EST Glomerular Filtration Rate 84 mL/min (>60); Est Glom Filt Rate - Afr Amer 102 mL/min (>60); Estimated Creatinine Clearance 88.41 ml/min; Glucose 99 mg/dL (74-106); Protein, Total 7.4 g/dL (6.4-8.2)
[2022-02-08 04:43] LABS: ALB/GLOB Ratio 1.1 RATIO (0.9-2.4); AST(SGOT) 15 U/L (15-37); Alanine Aminotransfer ALT/SGPT 25 U/L (16-61); Alkaline Phosphatase 73 U/L (45-117); Anion Gap 6 (5-15); Calcium,Total 8.9 mg/dL (8.5-10.1); Chloride 105 mmol/L (98-107); Globulin 3.5 g/dL (2.2-4.2); Lipase 75 U/L (73-393); Potassium 3.6 mmol/L (3.5-5.1); Sodium Level 139 mmol/L (136-145)
== END 2022-02-08 05:09 | disposition home or self-care (01) ==
PROVIDERS: Emergency Provider Emergency Medicine; Visit Provider Emergency Medicine
DX: K29.00 Acute gastritis without bleeding (principal); R10.13 Epigastric pain
CPT/HCPCS: 80053; 83690; 85025; 96361; 96365; 96372; 96375; 99284; J7030; A4216; J2405; J3490

== ENCOUNTER 2022-10-18 10:59 | Emergency (ER) | payer BC, SELFPAY ==
[2022-10-18 11:01] VITALS: BP 125/82; PULSE 67; RESP 14; TEMP 36.1; O2SAT 99; BMI 19.8
--- NOTE | 2022-10-18 12:04 | EX.ED.VIS.HA ---
HPI History of Present Illness Chief Complaint: Headache Informant: patient Narrative Narrative: Patient is a 42-year-old male with history of migraines presenting with a headache. Patient states he woke up at 5 AM to go to work and had a pounding headache. He called off with from work and went back to sleep for a couple hours. He woke up again around 9 or 10 AM and continued to have a headache. He states it is in the front of his head and feels like a constant pressure like his head is going to explode. He also has pain in the back of his head that radiates around. He has some associated photophobia. He thinks it was triggered by lack of sleep. He states this feels like his prior migraines. States Imitrex usually works. Did not take any medicines prior to arrival such as ibuprofen or Tylenol. Denies any fever, vision changes or any other complaints at this time [facility] Medical History Migraines Home Medications dicyclomine 20 mg tablet 20 mg PO TID PRN cramping #14 tabs 02/08/22 [Rx Last Taken Unknown] esomeprazole magnesium 20 mg capsule,delayed release (Nexium) 20 mg PO DAILY #30 caps 02/08/22 [Rx Last Taken Unknown] ondansetron 4 mg disintegrating tablet 4 mg PO Q8H PRN nausea and vomiting #10 tabs 02/08/22 [Rx Last Taken Unknown] Allergy/AdvReac Type Severity Reaction Status Date / Time No Known Allergies Allergy Verified 10/18/22 11:00 Social History Smoking Status: Never smoker substance use type: does not use ROS ROS ED Constitutional Constitutional ED: Denies chills or fever(s) Eyes Eyes: Reports other Details: phophobia ; Denies blurry vision or change in vision ENT ENT ED: Denies sore throat Cardiovascular Cardiovascular: Denies chest pain Respiratory/Chest Respiratory/Chest: Denies cough Gastrointestinal Gastrointestinal: Denies abdominal pain, nausea or vomiting Musculoskeletal Musculoskeletal: Denies arthralgias, myalgias or neck pain Integumentary Denies rash Neurologic Neurologic: Reports headache(s); Denies paresthesias or weakness Hematologic/Lymphatic Hematologic/Lymphatic: Denies easy bleeding or easy bruising EXAM Physical Exam Const Vital Signs: 10/18/22 11:01 Temperature 97 F L Temperature Source Temporal Pulse Rate 67 Respiratory Rate 14 Blood Pressure 125/82 H Blood Pressure Mean 96 Pulse Ox 99 Oxygen Delivery Method Room Air Positive well nourished and well developed General Appearance ED: well developed and NAD HEENT Reports normocephalic, TM's clear and moist mucous membranes atraumatic and trauma Tympanic Membrane ED: Yes TM's clear Neck supple, no meningeal signs and no JVD Resp normal respiratory effort and clear to auscultation bilaterally Cardio regular rate, regular rhythm and no murmurs GI non-tender and non-distended Neuro oriented x3, CN's II-XII intact bilaterally and no sensory deficits noted Coordination / Balance: [id number] test normal Motor Exam: strength 5/5 throughout Skin Lesions: no lesions Rashes: no rashes MDM MDM MDM Narrative Medical decision making narrative: Patient evaluated for headache. Differential includes migraine headache, tension headache. He does not have any infectious symptoms or nuchal rigidity low suspicion for meningitis. Patient states Imitrex usually works. This feels like his typical headaches it is not a thunderclap headache so do not think LP, head imaging or further work-up is indicated at this time. Patient is given dose of Imitrex as well as Motrin. If he is feeling better will be discharged home. Is plan on following up outpatient with a primary care doctor with encouragement of his significant other. Will be given a on-call for follow-up. Patient verbalized agreement understand this plan. Is given a work note per his request. Discharge Plan Triage Chief Complaint: Headache ED Provider: Melanie Love Dx/Rx/DC Orders Clinical Impression: Migraines Instructions: ED Headache Unspecified Prescriptions: No Action ondansetron 4 mg tablet,disintegrating 4 mg PO Q8H PRN (Reason: nausea and vomiting) Qty: 10 0RF dicyclomine 20 mg tablet 20 mg PO TID PRN (Reason: cramping) Qty: 14 0RF esomeprazole magnesium [Nexium] 20 mg capsule,delayed release(DR/EC) 20 mg PO DAILY Qty: 30 0RF Stand Alone Forms: ED Work / School Excuse Primary Care Provider: Care Physician,No Primary Referrals: Dwight Mark MD [Med Staff - Pediatric Genetic Counselor] - As soon as possible Care Physician,No Primary [Primary Care Provider] - Disposition Disposition: Home, Self Care Discharge Date/Time: 10/18/22 13:21
[2022-10-18] MEDS: SUMAtriptan 6 MG/0.5 ML Vial SC (12:29)
[2022-10-18] MEDS: Ibuprofen 600 MG Tablet PO (12:29)
--- NOTE | 2022-10-18 12:53 | CM.ED ---
SW Note Referral Source: Case Find Referral Reason: No Primary Care Physician (PCP) SW reviewed chart and noted that patient has no PCP. SW provided patient with list of [facility] and [facility] Physician List for reference. No other issues or concerns voiced at this time. SW remains available for any additional needs. Plan: Provided patient with PCP information Venecia YAO
== END 2022-10-18 13:21 | disposition home or self-care (01) ==
PROVIDERS: Emergency Provider Emergency Medicine; Visit Provider Emergency Medicine
DX: G43.909 Migraine, unspecified, not intractable, without status migrainosus (principal); H53.149 Visual discomfort, unspecified
CPT/HCPCS: 96372; 99281; 99283; J3030

== ENCOUNTER 2023-05-22 17:52 | Emergency (ER) | payer SELFPAY ==
[2023-05-22 17:53] VITALS: BP 115/91; PULSE 96; RESP 18; TEMP 35.9; O2SAT 96
[2023-05-22 17:58] VITALS: BMI 19.6
--- NOTE | 2023-05-22 18:13 | EDS_ITS ---
HPI History of Present Illness Chief Complaint: Headache Informant: patient Narrative Narrative: States he has some minor urine. Patient states he started with a migraine on day. He states this was due to pressure changes in the weather that is a common trigger for him. He states it was not that bad at all so he just ate food and went to sleep. He woke up it was still sore. Later in the day and Sunday he tried an oral Imitrex. But it just did not resolve the headache. He states it did help that. He is also been taking during migraine. Again it helps it but does not take it away. He states is not a bad headache but it just will not go away. He thinks this is because he started Imitrex a day after the onset of the headache. He needs a note so he can go back to work but he would like treatment for the headache. He states he is not nauseated but he rarely gets nauseated with his headaches unless they are really bad. The headache is more behind the eyes and a little bit more right than left. No trauma. No fevers. No neurologic symptoms. [facility] Medical History Migraines Home Medications NK 05/22/23 [History Last Taken Unknown] Allergy/AdvReac Type Severity Reaction Status Date / Time No Known Allergies Allergy Verified 05/22/23 17:53 Social History Smoking Status: Never smoker substance use type: does not use ROS ROS ED ROS Narrative A complete review of systems was performed and is negative except as documented in the history of present illness. Some specific details below. Constitutional: No recent fevers or chills. No rigors. Patient has not generally felt ill. EYE: No discharge, visual complaints, or pain. Did not have scotoma. ENT: No difficulty swallowing. No swelling. No sinus pressure or pain. No nasal discharge. No change in hearing. No ear pain. CV: No chest pain, pressure or aching. No palpitations or irregular beats. Patient has not been presyncopal or syncopal. Respiratory: No trouble breathing. No cough. No wheezing. GI: No abdominal pain. No nausea vomiting diarrhea. No blood in stool. : No frequency dysuria or hematuria. Musculoskeletal: No recent trauma. No pains. No swelling. Skin: No rash. No diaphoresis. Neuro: No weakness or numbness. No difficulty with speaking. No difficulty understanding speech. No visual loss. Please see history of present illness also. Endocrine: No polyuria or polydipsia. EXAM Physical Exam Narrative Exam Narrative: CONSTITUTIONAL: Patient is nontoxic in appearance. The patient looks comfortable. HEENT: No notable trauma. Mucous membranes moist. No sinus tenderness. Tympanic membranes are normal. No temporal artery tenderness. No facial rashes or swelling. EYES: No conjunctival injection. No proptosis. No pain with range of motion. NECK: No meningismus. No JVD. Range of motion is normal looking up down left and right without discomfort. CARDIOVASCULAR: Regular rate. Regular rhythm. No notable murmur. No JVD. RESPIRATORY: No respiratory distress. Breathing is unlabored. No wheezes. No rhonchi. No rales. No pain with a deep breath. GASTROINTESTINAL: Not distended. Bowel sounds are normal. No tenderness. GENITOURINARY: No CVA tenderness. MUSCULOSKELETAL: Atraumatic. No peripheral edema. NEUROLOGICAL: Patient is alert and oriented. No focal deficit noted. NIH stroke scale is 0. SKIN: No noted rashes. No diaphoresis. No vesicles noted. PSYCHIATRIC: Patient is calm. Mood is appropriate. Const Vital Signs: 05/22/23 17:53 Temperature 96.6 F L Temperature Source Temporal Pulse Rate 96 Respiratory Rate 18 Blood Pressure 115/91 H Blood Pressure Mean 99 Pulse Ox 96 Oxygen Delivery Method Room Air MDM MDM MDM Narrative Medical decision making narrative: Skin to give IV fluids and IV meds. But patient states he does not want that he just wants to get injections and to go home. This is his preference. This is a reasonable option as he has a long history of migraines and he states this is his typical migraine there is nothing different. Discharge Plan Triage Chief Complaint: Headache ED Provider: Ashutosh Nuñez Dx/Rx/DC Orders Clinical Impression: Migraines Instructions: ED, Migraine (Classical) Prescriptions: No Action NK Stand Alone Forms: ED Work / School Excuse Primary Care Provider: Care Physician,No Primary Referrals: Rosaura Fofana DO [Med Staff - Auto Garage Mechanic] - As Needed Care Physician,No Primary [Primary Care Provider] - Activity Restrictions/Additional Instructions: Follow-up with your physician or Dr. Fofana as above. Disposition Disposition: Home, Self Care
[2023-05-22] MEDS: DiphenhydrAMINE 50 MG/ML Syringe IV (18:23)
[2023-05-22] MEDS: proCHLORPERazine 10 MG/2 ML Vial IV (18:23)
== END 2023-05-22 18:43 | disposition home or self-care (01) ==
LOC: ED 18:40
PROVIDERS: Emergency Provider Emergency Medicine; Visit Provider Emergency Medicine
DX: G43.909 Migraine, unspecified, not intractable, without status migrainosus (principal)
CPT/HCPCS: 96374; 96375; 99282